=== PATIENT | female | born 1945 | race Caucasian/White ===

== ENCOUNTER 2017-01-14 10:32 | Outpatient (CLI) | payer MEDICARE ==
[2017-01-14 12:45] LABS: #Basophils 0.1 thou/uL (0.0-0.2); #Eosinphils 0.8 thou/uL (0.0-0.7); #Lymphocytes 3.2 thou/uL (1.20-3.40); #Monocytes 0.5 thou/uL (0.11-0.59); #Neutrophils 3.6 thou/uL (1.40-6.50); %Eosinophils 10.3 % (0.0-10.0); %Lymphocytes 38.9 % (21.0-51.0); %Neutrophils 43.8 % (42.0-75.0); Hemoglobin 13.1 g/dL (12.0-16.0); Mean Corpuscular HGB CONC 32.3 g/dL (32.0-36.0); Mean Corpuscular Hemoglobin 31.4 pg (27.0-31.0); Mean Corpuscular Volume 97.2 fl (81.0-99.0); Mean Platelet Volume 8.2 fL (7.4-10.4); Platelet Count 272 thou/uL (130-400); RBC Distribution Width 13.1 % (11.5-14.5); Red Blood Cell (RBC) Count 4.16 mill/uL (4.20-5.40); White Blood Cell (WBC) Count 8.1 thou/uL (4.8-10.8)
[2017-01-14 12:49] LABS: ALT (SGPT) 15 U/L (0-55); AST (SGOT) 19 U/L (5-34); Alkaline Phosphatase 150 U/L (40-150); Anion Gap 16 mmol/L (10-20); BUN (Urea Nitrogen) 24 mg/dL (9.8-20.1); Bilirubin, Direct 0.1 mg/dL (0.1-0.3); Bilirubin, Total 0.3 mg/dL (0.2-1.2); Calc. Creatinine Clearance 0 mL/min (70-130); Calcium 9.3 mg/dL (7.8-10.44); Carbon Dioxide 24 mmol/L (23-31); Chloride 106 mmol/L (98-107); Cholesterol 214 mg/dL (< 200 Desired); Estimated GFR-MDRD 49; Glucose 98 mg/dL (83-110); HDL Cholesterol 43 mg/dL (>60 Neg Risk); LDL Cholesterol, Calculated 129 mg/dL; Potassium 4.6 mmol/L (3.5-5.1); Sodium 141 mmol/L (136-145); Triglycerides 209 mg/dL (Less than 150)
[2017-01-14 13:01] LABS: Hemoglobin A1c 4.8 % (4.0-6.0)
[2017-01-14 18:15] LABS: Hep C IgG Ab Non-Reactive (NonReactive); Hep C Index 0.09 S/CO (0-0.79)
== END 2017-01-14 10:33 | disposition home or self-care (01) ==
LOC: NAVSJIPCSP 10:32
PROVIDERS: ATTEND Family Medicine
DX: Z11.59 Encounter for screening for other viral diseases (principal); E78.5 Hyperlipidemia, unspecified; E03.9 Hypothyroidism, unspecified; I10 Essential (primary) hypertension; N28.9 Disorder of kidney and ureter, unspecified; Z79.899 Other long term (current) drug therapy
CPT/HCPCS: 36415; 80048; 80061; 80076; 83036; 84443; 85025; 86803

== ENCOUNTER 2017-05-19 09:13 | Outpatient (CLI) | payer MEDICARE ==
[2017-05-19 12:17] LABS: #Basophils 0.1 thou/uL (0.0-0.2); #Eosinphils 1.4 thou/uL (0.0-0.7); #Lymphocytes 2.6 thou/uL (1.20-3.40); #Monocytes 0.5 thou/uL (0.11-0.59); #Neutrophils 4.1 thou/uL (1.40-6.50); %Basophils 1.2 % (0.0-1.0); %Eosinophils 15.7 % (0.0-10.0); %Lymphocytes 30.1 % (21.0-51.0); %Monocytes 5.8 % (0.0-10.0); %Neutrophils 47.2 % (42.0-75.0); Hemoglobin 13.1 g/dL (12.0-16.0); Mean Corpuscular HGB CONC 32.1 g/dL (32.0-36.0); Mean Corpuscular Hemoglobin 30.5 pg (27.0-31.0); Mean Platelet Volume 7.4 fL (7.4-10.4); Platelet Count 245 thou/uL (130-400); RBC Distribution Width 12.7 % (11.5-14.5); White Blood Cell (WBC) Count 8.6 thou/uL (4.8-10.8)
[2017-05-19 12:20] LABS: Bilirubin Negative (Negative); Blood, Urine Negative (Negative); Clarity Slightly Cloudy (Clear); Glucose, Urine (Dipstick) Negative (Negative); Leukocyte Large (Negative); Nitrite Positive (Negative); Protein, Urine (Dipstick) Negative (Neg-Trace); Specific Gravity, Urine 1.015 (1.005-1.030); Urobilinogen 0.2 mg/dL (0.2-1.0); pH, Urine 5.5 (5.0-9.0)
[2017-05-19 12:32] LABS: Hemoglobin A1c 4.9 % (4.0-6.0)
[2017-05-19 12:33] LABS: ALT (SGPT) 18 U/L (8-55); AST (SGOT) 20 U/L (5-34); Albumin 3.8 g/dL (3.4-4.8); Alkaline Phosphatase 158 U/L (40-150); Anion Gap 18 mmol/L (10-20); BUN (Urea Nitrogen) 20 mg/dL (9.8-20.1); Bilirubin, Direct 0.1 mg/dL (0.1-0.3); Bilirubin, Total 0.3 mg/dL (0.2-1.2); Calc. Creatinine Clearance 0 mL/min (70-130); Calcium 9.3 mg/dL (7.8-10.44); Carbon Dioxide 21 mmol/L (23-31); Cardiac Risk 5.8 (Less than 4.5); Chloride 108 mmol/L (98-107); Cholesterol 222 mg/dl (< 200 Desired); Estimated GFR-MDRD 51; Glucose 95 mg/dL (83-110); HDL Cholesterol 38 mg/dL (>60 Neg Risk); LDL Cholesterol, Calculated 129 mg/dL; Potassium 4.7 mmol/L (3.5-5.1); Protein, Total 6.5 g/dL (6.0-8.3); Sodium 142 mmol/L (136-145); Triglycerides 275 mg/dL (Less than 150)
[2017-05-19 12:37] LABS: RBC/HPF 0-3 HPF (0-3); Squamous Epithelial 0-3 HPF (0-3); WBC/HPF 21-50 HPF (0-3)
[2017-05-19 12:38] LABS: Bacteria/HPF 2+ HPF (None Seen)
== END 2017-05-19 09:14 ==
LOC: NAVSJIPCSP 09:13
PROVIDERS: ATTEND Family Medicine
DX: E78.5 Hyperlipidemia, unspecified (principal); E03.9 Hypothyroidism, unspecified; I10 Essential (primary) hypertension; Z79.899 Other long term (current) drug therapy
CPT/HCPCS: 36415; 80048; 80061; 80076; 81003; 81015; 83036; 84443; 85025; 87086

== ENCOUNTER 2017-06-11 08:01 | Outpatient (CLI) | payer MEDICARE ==
[2017-06-11 09:46] LABS: Free T4 (Free Thyroxine) 1.15 ng/dL (0.70-1.48)
--- NOTE | 2017-06-11 12:49 | ULT ---
RIGHT UPPER QUADRANT ULTRASOUND: Date: 06/11/17 COMPARISON: None. HISTORY: Diarrhea, dysphagia, and abdominal cramping with elevated liver function tests. TECHNIQUE: Multiplanar Lara scale sonographic imaging of the right upper quadrant obtained. FINDINGS: The hepatic parenchyma is diffusely echogenic and heterogeneous suggesting hepatocellular disease, s uch as hepatic steatosis. This limits assessment for focal liver lesion and intrahepatic biliary dil atation. Pancreas is not well assessed secondary to bowel gas and body habitus. Gallbladder is partially obscured by bowel gas. No gallbladder wall thickening or pericholecystic fl uid. The instrumentation engineer reports a negative Oswald's sign. CBD measures 4.0 mm, within normal limits. Right kidney measures 12.2 cm in craniocaudal dimension and demonstrates no stone or hydronephrosis. There is a probable 1.8 x 1.7 cm cyst within the lateral aspect of the right kidney, partially obscu red by bowel gas. IMPRESSION: 1. Increased echogenicity of the hepatic parenchyma suggesting steatosis. 2. No evidence for nephrolithiasis, cholecystitis, or biliary dilatation. 3. Probable right renal cyst, incompletely characterized on this exam. Given partial obscuration, a follow-up renal ultrasound in 6 months is advised to document stability. POS: ALFREDO
[2017-06-11 17:14] LABS: Iron 80 ug/dL (50-170); Iron Binding Capacity, Total 304 mcg/dL (265-497)
[2017-06-11 17:32] LABS: Ferritin 66.27 ng/mL (10-291)
[2017-06-11 17:46] LABS: HBCM Index 0.08 S/CO (0-0.79); HBSAg Index 0.21 S/CO (0-0.99); Hep A IgM AB Non-Reactive (NonReactive); Hep A IgM S/CO 0.13 S/CO (0-0.79); Hep B Surf Ag Non-Reactive S/CO (NonReactive); Hep C IgG Ab Non-Reactive (NonReactive); Hep C Index 0.12 S/CO (0-0.79); Hepatitis B Core IGM Abs Non-Reactive (NonReactive)
== END 2017-06-11 08:02 | disposition home or self-care (01) ==
LOC: NAV ULT 08:01
PROVIDERS: ATTEND Internal Medicine Gastroenterology
DX: R94.5 Abnormal results of liver function studies (principal); R19.7 Diarrhea, unspecified; R13.10 Dysphagia, unspecified; R10.9 Unspecified abdominal pain; K76.89 Other specified diseases of liver
CPT/HCPCS: 36415; 76705; 80074; 82728; 83516; 83540; 83550; 84439; 84443; 86038; 86235

== ENCOUNTER 2017-10-04 10:11 | Outpatient (CLI) | payer MEDICARE ==
[~2017-10-04 10:11] MED LIST: Iodixanol 320 MG/ML (100 ML BOT) ONE
--- NOTE | 2017-10-04 14:41 | CT ---
CT OF ABDOMEN AND PELVIS: Date: 10/04/17 COMPARISON: None. HISTORY: Increasing abdominal pain, diarrhea for 5 years. History of hysterectomy. TECHNIQUE: Serial axial CT imaging is obtained at 5 mm intervals from the lung bases through the pubic symphysis with IV and oral contrast. Coronal reformatted imaging obtained. FINDINGS: Incompletely imaged breast implants are present. Imaged lung bases demonstrate coarse linear interstitial densities bilaterally. Mild bibasilar bronch iectatic change noted as well. No free intraperitoneal air or fluid seen. The liver, spleen, gallbladder, and pancreas are grossly unremarkable, as are bilateral adrenal gland s. There are numerous subcentimeter low density lesions scattered throughout the right kidney, too small to characterize. Multiple low density left renal lesions are also noted, many of which are also too small to characterize. Neither kidney appears obstructed. The colon is decompressed, limiting assessment, from the level of the splenic flexure through the rec trav. Appendix is unremarkable. No evidence for small bowel obstruction or bowel inflammatory change. There is diffuse ectasia of the abdominal aorta with scattered areas of atherosclerotic calcification . No evidence for abdominal aortic aneurysm. No retroperitoneal or pelvic lymphadenopathy. Multilevel lower lumbar spine degenerative changes are present. IMPRESSION: 1. No evidence for bowel obstruction, free intraperitoneal air, or bowel inflammatory change. 2. Coarse linear interstitial density noted within both lung bases with bibasilar mild bronchiectasi s. 3. Multiple low density lesions within the bilateral kidneys, too small to characterize. Numerous cy sts are favored. This could be better assessed via follow-up ultrasound. POS: ALFREDO
== END 2017-10-04 10:12 | disposition home or self-care (01) ==
LOC: NAV CT 10:11
PROVIDERS: ATTEND Internal Medicine Gastroenterology
DX: R19.7 Diarrhea, unspecified (principal); R63.4 Abnormal weight loss; R68.81 Early satiety; J47.9 Bronchiectasis, uncomplicated; J98.4 Other disorders of lung; N28.89 Other specified disorders of kidney and ureter
CPT/HCPCS: 74177; Q9967

== ENCOUNTER 2020-07-29 14:44 | Outpatient (CLI) | payer MEDICARE ==
--- NOTE | 2020-07-29 16:09 | RAD ---
CERVICAL SPINE SERIES THREE VIEWS: History: Neck pain FINDINGS: Vertebral bodies are normal in height. Severe degenerative disc narrowing is seen at the C5-6 and C6- 7 levels. Minimal anterolisthesis of C4 on C5. Degenerative facet changes are noted. IMPRESSION: Moderately severe osteoarthritic changes of the lower cervical spine. POS: PATRICK
== END 2020-07-29 14:45 | disposition home or self-care (01) ==
LOC: NAV RAD 14:44
PROVIDERS: ATTEND Family Medicine
DX: M54.2 Cervicalgia (principal); M47.812 Spondylosis without myelopathy or radiculopathy, cervical region
CPT/HCPCS: 72040

== ENCOUNTER 2020-10-02 00:24 | Emergency (ER) | payer MEDICARE ==
[2020-10-02] MEDS ORDERED: Acetaminophen 500 MG TAB ONE (00:59)
[2020-10-02] MEDS ORDERED: Ventolin HFA Inhaler 60 PUFF INHALER ONE (01:32)
[2020-10-02] MEDS ORDERED: Sodium Chloride 0.9% 1,000 ML ONE (01:32)
[2020-10-02 01:42] LABS: ALT (SGPT) 15 U/L (8-55); AST (SGOT) 16 U/L (5-34); Albumin 3.7 g/dL (3.4-4.8); Alkaline Phosphatase 123 U/L (40-110); Anion Gap 16 mmol/L (10-20); BUN (Urea Nitrogen) 23 mg/dL (9.8-20.1); Bilirubin, Total 0.4 mg/dL (0.2-1.2); Calc. Creatinine Clearance 0 mL/min (70-130); Calcium 9.1 mg/dL (7.8-10.44); Carbon Dioxide 21 mmol/L (23-31); Chloride 104 mmol/L (98-107); Globulin 3.9 g/dL (2.4-3.5); Glucose 119 mg/dL (83-110); Potassium 4.3 mmol/L (3.5-5.1); Protein, Total 7.6 g/dL (6.0-8.3); Sodium 137 mmol/L (136-145)
[2020-10-02 01:43] LABS: Band 10 % (5-11); Eosinophils 3 % (0-10); Hemoglobin 13.5 g/dL (12.0-16.0); Lymphocytes 4 % (21-51); MDiff Complete? YES; Mean Corpuscular HGB CONC 31.9 g/dL (32.0-36.0); Mean Corpuscular Hemoglobin 29.7 pg (27.0-31.0); Mean Corpuscular Volume 93.2 fL (78.0-98.0); Mean Platelet Volume 8.8 fL (7.4-10.4); Monocytes 6 % (0-10); Neutrophil 73 % (42-75); Platelet Count 282 thou/uL (130-400); Platelet Morphology Comment Appears Adequate; RBC Distribution Width 12.8 % (11.5-14.5); RBC Morphology Normal; Reactive Lymphocytes 4 % (0-10); Red Blood Cell (RBC) Count 4.56 mill/uL (4.20-5.40); White Blood Cell (WBC) Count 15.1 thou/uL (4.8-10.8)
[2020-10-02] MEDS ORDERED: Dexamethasone 4 mg/ml Vial ONE (02:00)
--- NOTE | 2020-10-02 07:44 | RAD ---
Portable frontal chest radiograph: 10/02/2020 COMPARISON: 01/29/2016 HISTORY: Fever, headache, cough FINDINGS: There are coarse increased linear interstitial densities throughout both lungs with superim posed hazy bilateral groundglass opacity. No pneumothorax or focal consolidation or alveolar edema. There is a degree of interstitial prominence noted on the 2016 exam. IMPRESSION: Nonspecific interstitial and groundglass opacity. A degree of this is definitely chronic in nature but a superimposed acute process, including atypical infectious pneumonitis such as Covid 19 is a possibility. Clinical correlation is required.
== END 2020-10-02 02:25 | disposition short-term general hospital (02) ==
LOC: NAV ERS 00:24
DX: J18.9 Pneumonia, unspecified organism (principal); I10 Essential (primary) hypertension; E66.9 Obesity, unspecified; E03.9 Hypothyroidism, unspecified; K58.9 Irritable bowel syndrome, unspecified; Z87.891 Personal history of nicotine dependence; Z79.82 Long term (current) use of aspirin; Z79.899 Other long term (current) drug therapy
CPT/HCPCS: 36415; 71045; 80053; 83605; 83880; 85025; 87040; 87804; 96365; 96375; J1100; J1956; J7050

== ENCOUNTER 2021-10-20 17:44 | Outpatient (CLI) | payer MEDICARE | END 2021-10-20 17:45 | disposition home or self-care (01) | LOC: NAV ERS 17:44 | PROVIDERS: ATTEND Family Medicine | DX: J06.9 Acute upper respiratory infection, unspecified (principal); R05.9 Cough, unspecified; R06.2 Wheezing; J18.9 Pneumonia, unspecified organism; J84.10 Pulmonary fibrosis, unspecified | CPT/HCPCS: 71046 ==

== ENCOUNTER → 2022-02-18 | Emergency (ER) | payer MEDICARE ==
[~2022-02-18] MED LIST changes: +Dexamethasone 4 mg/ml Vial ONE; +Dextrose 5% in Water 250 ML ONE; -Iodixanol 320 MG/ML (100 ML BOT) ONE; +Levofloxacin 500 mg/D5W 100 ml Premix Bag ONE; +Norepinephrine 4 MG/4 ML VIAL ONE; +Sodium Chloride 0.9% 2,000 ML ONE; +Sodium Chloride 0.9% 500 ML ONE
[2022-02-18 10:39] LABS: ALT (SGPT) 25 U/L (8-55); AST (SGOT) 34 U/L (5-34); Albumin 3.5 g/dL (3.4-4.8); Alkaline Phosphatase 135 U/L (40-110); Anion Gap 23 mmol/L (10-20); BUN (Urea Nitrogen) 22 mg/dL (9.8-20.1); Calc. Creatinine Clearance 0 mL/min (70-130); Calcium 8.7 mg/dL (7.8-10.44); Carbon Dioxide 16 mmol/L (23-31); Chloride 105 mmol/L (98-107); Globulin 3.2 g/dL (2.4-3.5); Glucose 200 mg/dL (83-110); Potassium 5.3 mmol/L (3.5-5.1); Protein, Total 6.7 g/dL (5.8-8.1); Sodium 139 mmol/L (136-145)
[2022-02-18 10:59] LABS: CKMB 1.3 ng/mL (0-6.6)
[2022-02-18 11:02] LABS: Hemoglobin 10.6 g/dL (12.0-16.0); Mean Corpuscular HGB CONC 29.7 g/dL (32.0-36.0); Mean Corpuscular Hemoglobin 31.8 pg (27.0-31.0); Mean Platelet Volume 7.7 fL (7.4-10.4); Platelet Count 471 thou/uL (130-400); RBC Distribution Width 18.2 % (11.5-14.5); Red Blood Cell (RBC) Count 3.33 mill/uL (4.20-5.40); White Blood Cell (WBC) Count 20.8 thou/uL (4.8-10.8)
[2022-02-18 11:03] LABS: Anisocytosis SLIGHT = 6-15 cells (100X) (0-5/hpf); Band 4 % (5-11); Lymphocytes 15 % (21-51); MDiff Complete? YES; Macrocytosis SLIGHT = 6-15 cells (100X) (0-5/hpf); Monocytes 5 % (0-10); Neutrophil 76 % (42-75); Platelet Morphology Comment Appears Adequate
[2022-02-18 11:21] LABS: CO2 Tension (PvCO2) 39.5 mmHg (42.0-51.0)
[2022-02-18 11:22] LABS: Bicarbonate (HCO3v) 22.6 mmol/L (22.0-28.0); vO2 Saturation-calc 94.4 % (60.0-85.0)
[2022-02-18 11:23] LABS: Calcium, Ionized 1.08 mmol/L (1.15-1.33); Chloride 105 mmol/L (98-107); Hemoglobin - Calc 11.2 g/dL (12.0-16.0); Sodium 138 mmol/L (138-145); T. Carbon Dioxide 23.8 mmol/L (22.0-28.0)
[2022-02-18 11:26] LABS: SARS-CoV-2 NAA Rapid Test Not Detected (NotDetected)
[2022-02-18 11:35] LABS: Bilirubin Negative (Negative); Blood, Urine Negative (Negative); Clarity Clear (Clear); Glucose, Urine (Dipstick) Negative (Negative); Ketone, Urine Negative (Negative); Leukocyte Negative (Negative); Nitrite Negative (Negative); Protein, Urine (Dipstick) Negative (Neg-Trace); Specific Gravity, Urine 1.025 (1.005-1.030); Urobilinogen 0.2 mg/dL (Less than 2)
[2022-02-18 11:51] LABS: Base Excess-Venous -2.6 mmol/L (-2.0 to 3.0); Potassium 4.6 mmol/L (3.5-5.1)
== END ==
LOC: NAV ERS 09:48
DX: A41.9 Sepsis, unspecified organism (principal); J18.9 Pneumonia, unspecified organism; I10 Essential (primary) hypertension; E66.9 Obesity, unspecified; E03.9 Hypothyroidism, unspecified; Z86.711 Personal history of pulmonary embolism; Z87.891 Personal history of nicotine dependence; Z79.899 Other long term (current) drug therapy; Z79.01 Long term (current) use of anticoagulants; Z20.822 Contact with and (suspected) exposure to COVID-19
CPT/HCPCS: 71045; 80053; 81003; 82330; 82435; 82553; 82803; 83605; 83880; 84132; 84295; 84484; 85014; 85025; 85379; 87040; 93005; 94760; U0002; 51701; 96365; 96367; 96375; J1100; J1956; J3370; J7030; J7050; J7070; J7620